=== PATIENT | male | born 2000 | race American Indian/Alaskan Native ===

== ENCOUNTER 2021-02-02 05:40 | Emergency (ER) | payer SELFPAY ==
[2021-02-02 06:24] LABS: Basophils # (Auto) 0.1 K/mm3 (0.0-0.1); Basophils % (Auto) 0.3 % (0.0-1.8); Eosinophils % (Auto) 0.3 % (0.0-4.3); Hematocrit 47.1 % (35.5-45.6); Hemoglobin 16.2 gm/dl (11.8-15.2); Lymphocytes # (Auto) 2.2 K/mm3 (1.2-5.4); Lymphocytes % (Auto) 11.5 % (13.4-35.0); Mean Corpuscular HGB Conc 34 % (32-34); Mean Corpuscular Volume 78 fl (84-94); Monocytes # (Auto) 0.9 K/mm3 (0.0-0.8); Monocytes % (Auto) 4.8 % (0.0-7.3); Platelet Count 193 K/mm3 (140-440); Red Blood Count 6.08 M/mm3 (3.65-5.03); Red Cell Distribution Width 14.3 % (13.2-15.2)
[2021-02-02 06:45] LABS: Alanine Aminotransferase 17 units/L (7-56); Albumin 5.2 g/dL (3.9-5); BUN/Creatinine Ratio 19; Blood Urea Nitrogen 15 mg/dL (9-20); Calcium 9.7 mg/dL (8.4-10.2); Hemolysis Index 5
[2021-02-02 07:56] LABS: Amorphous Crystals,Urine 3+; Bilirubin,Urine NEG (Negative); Blood,Urine NEG (Negative); Color,Urine Yellow (Yellow); Urobilinogen,Urine < 2.0 mg/dL (<2.0)
[2021-02-02 07:59] LABS: RBC,Urine < 1.0 /HPF (0.0-6.0); WBC,Urine < 1.0 /HPF (0.0-6.0)
[2021-02-02] MEDS ORDERED: SODIUM CHLORIDE 0.9% 1000 ML 1,000 ML IV ONE (08:17)
[2021-02-02] MEDS ORDERED: ONDANSETRON 4 MG/2 ML INJ IV ONE (08:17)
--- NOTE | 2021-02-02 10:07 | Emergency Department Report ---
ED Abdominal Pain HPI - General Chief Complaint: Abdominal Pain Stated Complaint: STOMACH PAIN/VOMITING Time Seen by Provider: 02/02/21 07:54 Source: patient Mode of arrival: Ambulatory Limitations: No Limitations - History of Present Illness Initial Comments: 20-year-old -[place] male presents to the emergency room for lower abdominal pain that he rates a 7 out of 10. Patient states he has nausea vomiting that started yesterday. Patient reports he has not been able to hold down any food or water. States his last bowel movement was yesterday. States that his stomach pain has been going on for 3 days mostly in the left lower quadrant. He denies any diarrhea denies any constipation. States the pain is dull and achy. States that he vomited x2 days and is worse when he eats. States that it got better after vomiting but then it came back. Patient never had this before. Is taking nothing for symptoms. Last bowel movement was 5 AM this morning. He does admit to smoking marijuana 3 times a week and denies any EtOH use. Patient states that his primary care doctor he has not seen in over a year. He does complain of nausea at the time. MD Complaint: abdominal pain Onset/Timin -: days(s) Location: LLQ Radiation: none Migration to: no migration Severity scale (0 -10): 7 Quality: aching, dull Consistency: constant Improves With: nothing Worsens With: eating Associated Symptoms: vomiting. denies: diarrhea, fever, chills, constipation - Related Data Previous Rx's Medication Instructions Recorded Last Taken Type Ondansetron [Zofran Odt] 4 mg PO Q8HR PRN #12 tab.rapdis 02/02/21 Unknown Rx Allergies Allergy/AdvReac Type Severity Reaction Status Date / Time No Known Allergies Allergy Unverified 02/02/21 05:52 ED Review of Systems ROS: Stated complaint: STOMACH PAIN/VOMITING Other details as noted in HPI Comment: All other systems reviewed and negative ED Past Medical Hx - Past Medical History Previous Medical History?: Yes Additional medical history: Bronchitis - Surgical History Past Surgical History?: No - Medications Home Medications: Home Medications Medication Instructions Recorded Confirmed Last Taken Type Ondansetron [Zofran Odt] 4 mg PO Q8HR PRN #12 tab.rapdis 02/02/21 Unknown Rx ED Physical Exam - General Limitations: No Limitations General appearance: alert, in no apparent distress - Head Head exam: Present: atraumatic, normocephalic - Eye Eye exam: Present: normal appearance - ENT ENT exam: Present: normal exam - Neck Neck exam: Present: normal inspection, full ROM - Respiratory Respiratory exam: Absent: accessory muscle use - Cardiovascular Cardiovascular Exam: Present: regular rate - GI/Abdominal GI/Abdominal exam: Present: soft. Absent: distended, tenderness, guarding, rebound - Extremities Exam Extremities exam: Present: normal inspection - Back Exam Back exam: Present: normal inspection - Neurological Exam Neurological exam: Present: alert, oriented X3 - Psychiatric Psychiatric exam: Present: normal affect, normal mood - Skin Skin exam: Present: warm, dry, intact, normal color. Absent: rash ED Course Vital Signs 02/02/21 02/02/21 05:55 05:56 Temperature 98.3 F Pulse Rate 61 Respiratory 16 Rate Blood Pressure 138/90 O2 Sat by Pulse 95 Oximetry - Reevaluation(s) Reevaluation #1: 02/02/21 14:14 Patient reports that he feels much better. Patient be discharged home. ED Medical Decision Making - Lab Data Result diagrams: 02/02/21 06:02 02/02/21 06:02 - Radiology Data Radiology results: report reviewed [facility] [address] [place] [address] Cat Scan Report Signed Patient: ROSAS COLLAZO MR#: [id number] : 2000 Acct:[id number] Age/Sex: 20 / M ADM Date: 02/02/21 Loc: ED Attending Dr: Ordering Physician: JUAN AKHTAR Date of Service: 02/02/21 Procedure(s): CT abdomen pelvis w con Accession Number(s): [id number] cc: JUAN AKHTAR CT ABDOMEN AND PELVIS WITH CONTRAST INDICATION / CLINICAL INFORMATION: LUQ pain and tenderness. OMNI 300 100 ML. TECHNIQUE: Axial CT images were obtained through the abdomen and pelvis after IV contrast. All CT scans at this location are performed using CT dose reduction for ALARA by means of automated exposure control. COMPARISON: None available. FINDINGS: LOWER CHEST: No significant abnormality. LIVER: No significant abnormality. GALLBLADDER: No significant abnormality. BILE DUCTS: No significant abnormality. PANCREAS: No significant abnormality. SPLEEN: No significant abnormality. ADRENALS: No significant abnormality. RIGHT KIDNEY / URETER: No significant abnormality. 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 No intrarenal or ureteral calculi identified. STOMACH / SMALL BOWEL: No significant abnormality. COLON: No significant abnormality. APPENDIX: No significant abnormality. PERITONEUM: No free fluid. No free air. No fluid collection. LYMPH NODES: No significant adenopathy. AORTA / ARTERIES: No significant abnormality. IVC / VEINS: No significant abnormality. URINARY BLADDER: No significant abnormality. REPRODUCTIVE ORGANS: No significant abnormality. ADDITIONAL FINDINGS: None. SKELETAL SYSTEM: No significant abnormality. IMPRESSION: 1. No acute abdominopelvic abnormality. Signer Name: Ishan Beckett MD Signed: 02/02/2021 10:03 AM Workstation Name: [id number] Transcribed By: KIERSTEN Dictated By: ISHAN BECKETT MD Electronically Authenticated By: ISHAN BECKETT MD Signed Date/Time: 02/02/21 1003 DD/ 0959 TD/TT: Print Cancel - Medical Decision Making 20-year-old -[place] male presents to the emergency room for lower abdominal pain that he rates a 7 out of 10. Patient states he has nausea vomiting that started yesterday. Patient reports he has not been able to hold down any food or water. States his last bowel movement was yesterday. States that his stomach pain has been going on for 3 days mostly in the left lower quadrant. He denies any diarrhea denies any constipation. States the pain is dull and achy. States that he vomited x2 days and is worse when he eats. States that it got better after vomiting but then it came back. Patient never had this before. Is taking nothing for symptoms. Last bowel movement was 5 AM this morning. He does admit to smoking marijuana 3 times a week and denies any EtOH use. Patient states that his primary care doctor he has not seen in over a year. He does complain of nausea at the time. CBC CMP urinalysis CT abdomen. Patient has an elevated white count of 18.9 which could be access representative of his dehydration as patient is hemoconcentrated. Urinalysis is unremarkable. CT abdomens shows no acute abnormalities. Patient is given fluid and Zofran. Patient has normal vital signs. This is most likely hyper emesis cannabis. Patient will be referred to GI specialist for further evaluation. Critical care attestation.: If time is entered above; I have spent that time in minutes in the direct care of this critically ill patient, excluding procedure time. ED Disposition Clinical Impression: Acute abdominal pain Disposition: DC-01 TO HOME OR SELFCARE Is pt being admited?: No Does the pt Need Aspirin: No Condition: Stable Instructions: Abdominal Pain, Adult, [id number] Additional Instructions: CT scan is negative for any acute abnormalities. Prescriptions: Ondansetron [Zofran Odt] 4 mg PO Q8HR PRN #12 tab.rapdis PRN Reason: Nausea And Vomiting Referrals: [facility] [Provider Group] - 3-5 Days [facility] [Provider Group] - 3-5 Days [facility] [Outside] - 3-5 Days
[2021-02-02] MEDS ORDERED: KETOROLAC 30 MG/1 ML INJ IV ONE (11:58)
[2021-02-02 14:29] VITALS: BP 125/74
== END 2021-02-02 15:16 | disposition home or self-care (01) ==
LOC: ED 05:40
DX: R10.32 Left lower quadrant pain (principal); R11.2 Nausea with vomiting, unspecified; Z79.899 Other long term (current) drug therapy
CPT/HCPCS: 36415; 74177; 80053; 81001; 85025; 96361; 96374; 96375; 99284; J1885; J2405; J7030; Q9967